=== PATIENT | male | born 1990 | race Caucasian/White ===

== ENCOUNTER 2023-09-12 17:33 | Inpatient (IN) ==
[2023-09-12 18:52] LABS: ABS Eosinophils 0.2 10^3/uL (0.0-0.5); ABS Lymphocytes 2.2 10^3/uL (1.0-4.8); ABS Monocytes 0.6 10^3/uL (0.0-1.1); ABS Neutrophils 8.4 10^3/uL (1.5-7.6); ABS Nucleated RBC 0.01 10^3/ul; Eosinophil % 1.5 %; Hemoglobin 13.8 g/dL (13.2-16.3); Lymphocyte % 19.1 %; Mean Corpuscular Hemoglobin 27.3 pg (27-33); Mean Corpuscular Hgb Conc 33.7 g/dL (31-36); Mean Corpuscular Volume 80.9 fL (80-97); Mean Platelet Volume 6.1 fL (7.5-11.2); Nucleated Red Blood Cells % 0.1 %/100WBC (0.0-0.8); Platelet Count 403 10^3/uL (150-450); Red Blood Count 5.07 10^6/uL (4.06-5.63); White Blood Count 11.4 10^3/uL (3.6-10.2)
[2023-09-12 19:03] LABS: Urine Appearance Clear; Urine Bilirubin Negative (Negative); Urine Blood Negative (Negative); Urine Color Light-Yellow; Urine Glucose Negative (Negative); Urine Ketones Negative (Negative); Urine Nitrite Negative (Negative); Urine Protein Negative (Negative); Urine Specific Gravity 1.011 (1.002-1.030); Urine Urobilinogen Negative (Negative); Urine pH 5.5 (5.0-8.0)
[2023-09-12 19:11] LABS: ALT 17 U/L (7-52); AST 15 U/L (13-39); Albumin/Globulin Ratio 1.8 (1-3); Alkaline Phosphatase 69 U/L (35-149); Anion Gap 7 mmol/L (2-16); Blood Urea Nitrogen 13 mg/dL (6-24); CO2 Carbon Dioxide 28 mmol/L (22-32); Calcium 9.7 mg/dL (8.6-10.3); Chloride 103 mmol/L (101-111); Creatinine, Serum 0.83 mg/dL (0.67-1.17); Globulin 2.8 g/dL (2-4); Glucose 97 mg/dL (70-100); Potassium 4.1 mmol/L (3.5-5.0); Sodium 138 mmol/L (135-145); Total Bilirubin 0.6 mg/dL (0.2-1.0); Total Protein 7.8 g/dL (6.4-8.9); Urine Benzodiazepine Screen None Detected (None Detect); Urine Cannabinoids Screen Presumptive Positive (None Detect); Urine Opiates Screen None Detected (None Detect); eGFR CKD-EPI 117.8 (>60)
[2023-09-12 19:46] LABS: Acetaminophen < 15 mcg/mL; Alcohol, S < 13 mg/dL (<13); Salicylate < 2.50 mg/dL (<30)
[2023-09-13] MEDS ORDERED: Al Hydrox/Mg Hydrox/Simet LIQ 30 ML UDC PO PRN (00:15)
[2023-09-13] MEDS ORDERED: LORazepam 2 mg VIAL 1 ml ONE (01:28)
[2023-09-13] MEDS: LORazepam 2 mg VIAL 1 ml IM ONE (01:33)
[2023-09-13] MEDS: Haloperidol 5 mg/ml SDV IV/IM 5 MG/ML AMP IM ONE (01:33)
[2023-09-13 03:14] VITALS: BP 127/79
[2023-09-13] MEDS: Vitamin THERAPEUTIC TAB PO SCH (10:00)
[2023-09-14 08:17] LABS: HDL Cholesterol 40.5 mg/dL
== END 2023-09-14 11:33 | disposition home or self-care (01) | DRG 886 ==
LOC: ED 17:33 → EDHOLD 09-13 00:15 → BSU 09-13 03:11
PROVIDERS: ADMIT Psychiatry & Neurology Psychiatry; ATTEND Psychiatry & Neurology Psychiatry